=== PATIENT | male | born 1985 | race Caucasian/White ===

== ENCOUNTER 2016-08-25 20:30 | Emergency (ER) | payer BC, OTHER ==
[~2016-08-25] VITALS: Ht 177.8 cm; Wt 81.6 kg
[~2016-08-25 20:30] MED LIST: ALBU17AE3; CTRZ10T; MNTL10T
[2016-08-25 21:06] LABS: BASOPHILS # (AUTO) 0.1 10^3/uL (0.0-0.1); BASOPHILS % (AUTO) 1 % (0-10); EOSINOPHILS # (AUTO) 0.6 10^3/uL (0.0-0.3); EOSINOPHILS % (AUTO) 6 % (0-10); LYMPHOCYTES # (AUTO) 3.4 X 10^3 (1.0-4.0); LYMPHOCYTES % (AUTO) 34 % (12-44); MEAN CORPUSCULAR HEMOGLOBIN 28 PG (25-34); MEAN CORPUSCULAR HGB CONC 35 G/DL (32-36); MEAN CORPUSCULAR VOLUME 81 FL (80-99); MEAN PLATELET VOLUME 9.5 FL (7.4-10.4); MONOCYTES # (AUTO) 0.9 X 10^3 (0.0-1.0); MONOCYTES % (AUTO) 9 % (0-12); NEUTROPHILS # (AUTO) 5.1 X 10^3 (1.8-7.8); NEUTROPHILS % (AUTO) 51 % (42-75); PLATELET COUNT 287 10^3/uL (130-400); RED BLOOD COUNT 4.99 10^6/uL (4.35-5.85); RED CELL DISTRIBUTION WIDTH 12.8 % (10.0-14.5)
--- NOTE | 2016-08-25 21:07 | ED Chest Pain ---
General Chief Complaint: Chest Pain Stated Complaint: CHEST PAIN Nursing Triage Note: REPORTS 2 WEEKS OF CP, REPORTS INSPIRATIONAL PAIN IN LEFT SIDE CHEST. ALSO STATES IT FEELS LIKE A KNIFE JABBED IN LEFT SIDE OF NECK FREQUENTLY Nursing Sepsis Screen: No Definite Risk Source: patient Exam Limitations: no limitations History of Present Illness Time seen by provider: 21:05 Initial Comments Patient complains of constant, sharp, respirophasic left sided chest pain for at least one week. It became worse tonight as he was running. He states the pain radiates to his back and up to his left neck. He denies trauma. He smokes marijuana but no cigarettes. Allergies and Home Medications Allergies Coded Allergies: No Known Drug Allergies (Verified Allergy, Unknown, 02/21/08) Home Medications Albuterol 17 Gm Inh (Reported) Cetirizine Hcl 10 Mg Tablet (Reported) Montelukast Sodium 10 Mg Tablet (Reported) Review of Systems Constitutional: no symptoms reported Respiratory: See HPI Cardiovascular: Chest Pain Gastrointestinal: No Symptoms Reported All Other Systems Reviewed Negative Unless Noted: Yes Past Xqqhayk-Eakilr-Tzfnkq Hx Patient Social History Alcohol Use: Regular Use Recreational Drug Use: Yes (THC) Smoking Status: Current Someday Smoker 2nd Hand Smoke Exposure: Yes (THC) Recent Foreign Travel: No Contact w/Someone Who Travel: No Recent Infectious Disease Expo: No Recent Hopitalizations: No Seasonal Allergies Seasonal Allergies: Yes Surgeries HX Surgeries: Yes (gum skin grafting) Surgeries: Testicular Respiratory Hx Respiratory Disorders: Yes Respiratory Disorders: Asthma Cardiovascular Hx Cardiac Disorders: Yes (MURMUR CHILD) Neurological Hx Neurological Disorders: No Reproductive System Hx 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) Genitourinary Hx Genitourinary Disorders: No Gastrointestinal Hx Gastrointestinal Disorders: No Musculoskeletal Hx Musculoskeletal Disorders: No Endocrine Hx Endocrine Disorders: No HEENT HX ENT Disorders: No Cancer Hx Cancer: No Psychosocial Hx Psychiatric Problems: Yes Behavioral Health Disorders: Anxiety Integumentary HX Skin/Integumentary Disorder: No Blood Transfusions Hx Blood Disorders: No Reviewed Nursing Assessment Reviewed/Agree w Nursing PMH: Yes Physical Exam Vital Signs Vital Sign - Last 12Hours 08/25/16 20:37 Temp 99.7 Pulse 102 Resp 20 B/P 152/97 Pulse Ox 99 O2 Delivery Room Air Capillary Refill : Less Than 3 Seconds General Appearance: No Apparent Distress WD/WN HEENT: Pharynx Normal Neck: Supple Respiratory: Lungs Clear Normal Breath SoundsNo Pleural Rub Cardiovascular: Regular Rate, Rhythm No Edema Gastrointestinal: Soft Extremity: Normal Inspection Neurologic/Psychiatric: Alert No Motor/Sensory Deficits Skin: Normal Color Warm/Dry Progress/Results/Core Measures Results/Orders Lab Results Laboratory Tests Test 08/25/16 21:00 Range/Units Alanine Aminotransferase (ALT/SGPT) 56 H 0-55 U/L Albumin 4.5 3.2-4.5 G/DL Alkaline Phosphatase 90 40-136 U/L Anion Gap 13 5-14 MMOL/L Aspartate Amino Transf (AST/SGOT) 36 H 5-34 U/L BUN/Creatinine Ratio 10 Basophils # (Auto) 0.1 0.0-0.1 10^3/uL Basophils (%) (Auto) 1 0-10 % Blood Urea Nitrogen 10 7-18 MG/DL Calcium Level 9.3 8.5-10.1 MG/DL Carbon Dioxide Level 23 21-32 MMOL/L Chloride Level 103 98-107 MMOL/L Creatinine 1.05 0.60-1.30 MG/DL D-Dimer 1.02 H 0.00-0.49 UG/ML Eosinophils # (Auto) 0.6 H 0.0-0.3 10^3/uL Eosinophils (%) (Auto) 6 0-10 % Estimat Glomerular Filtration Rate > 60 Glucose Level 88 70-105 MG/DL Hematocrit 41 40-54 % Hemoglobin 14.1 13.3-17.7 G/DL Lipase 25 8-78 U/L Lymphocytes # (Auto) 3.4 1.0-4.0 X 10^3 Lymphocytes (%) (Auto) 34 12-44 % Magnesium Level 2.3 1.8-2.4 MG/DL Mean Corpuscular Hemoglobin 28 25-34 PG Mean Corpuscular Hemoglobin Concent 35 32-36 G/DL Mean Corpuscular Volume 81 80-99 FL Mean Platelet Volume 9.5 7.4-10.4 FL Monocytes # (Auto) 0.9 0.0-1.0 X 10^3 Monocytes (%) (Auto) 9 0-12 % Neutrophils # (Auto) 5.1 1.8-7.8 X 10^3 Neutrophils (%) (Auto) 51 42-75 % Platelet Count 287 130-400 10^3/uL Potassium Level 4.0 3.6-5.0 MMOL/L Red Blood Count 4.99 4.35-5.85 10^6/uL Red Cell Distribution Width 12.8 10.0-14.5 % Sodium Level 139 135-145 MMOL/L Total Bilirubin 0.8 0.1-1.0 MG/DL Total Protein 7.4 6.4-8.2 G/DL Troponin I < 0.30 <0.30 NG/ML White Blood Count 10.0 4.3-11.0 10^3/uL My Orders Orders-FRANDY HAND MD Cbc With Automated Diff (08/25/16 20:41) Magnesium (08/25/16 20:41) Chest 1 View, Ap/Pa Only (08/25/16 20:41) Ekg Tracing (08/25/16 20:41) Cardiac Profile 1 (08/25/16 20:41) Comprehensive Metabolic Panel (08/25/16 20:41) O2 (08/25/16 20:41) Monitor-Rhythm Ecg Trace Only (08/25/16 20:41) Saline Lock/Iv-Start (08/25/16 20:41) Lipase (08/25/16 20:41) Ketorolac Injection (Toradol Injection) (08/25/16 21:15) Fibrin Degradation Products (08/25/16 21:02) Ct Angio Chest W (08/25/16 21:51) Iohexol Injection (Omnipaque 350 Mg/Ml 1 (08/25/16 22:15) Ns (Ivpb) (Sodium Chloride 0.9% Ivpb Bag (08/25/16 22:15) Prednisone Tablet (Deltasone Tablet) (08/25/16 23:13) Medications Given in ED Current Medications Medications Dose Ordered Sig/Edd Route Start Time Stop Time Status Last Admin Dose Admin Iohexol 150 ml ONCE ONCE IV 08/25/16 22:15 08/25/16 22:16 DC 08/25/16 22:16 125 ML Ketorolac Tromethamine 30 mg ONCE ONCE IVP 08/25/16 21:15 08/25/16 21:16 DC 08/25/16 21:04 30 MG Sodium Chloride 100 ml ONCE ONCE IV 08/25/16 22:15 08/25/16 22:16 DC 2/22/17 22:16 80 ML Vital Signs/I&O Vital Sign - Last 12Hours 08/25/16 08/25/16 08/25/16 20:37 20:37 21:04 Temp 99.7 99.7 Pulse 102 Resp 20 B/P 152/97 Pulse Ox 99 O2 Delivery Room Air Room Air Blood Pressure Mean: 115 Progress Note : Progress Note CT scan of the chest was ordered due to elevated d-dimer and left-sided pleuritic chest pain ECG Initial ECG Rhythm: Normal Sinus Initial ECG Intervals: Normal Initial ECG Impression: Nonspecific Changes Diagnostic Imaging Comments Date of Exam:08/25/16 CHEST 1 VIEW, AP/PA ONLY INDICATION: Chest pain COMPARISON: None FINDINGS: Single frontal view of the chest demonstrates normal heart size and pulmonary vascularity. The lungs are well aerated and clear. No large pleural effusion or pneumothorax is seen. The visualized osseous structures show no acute abnormalities. IMPRESSION: 1. No acute cardiopulmonary process. CT chest was negative for PE Departure Impression Impression: Primary Impression: Chest pain Additional Impression: Pleurisy Disposition: 01 HOME, SELF-CARE Condition: Stable Departure-Patient Inst. Decision time for Depature: 22:50 Referrals: YOGESH DONALDSON MD (PCP) Primary Care Physician Patient Instructions: Chest Pain That Is Not Caused by the Heart (DC) FRANDY HAND MD Aug 25, 2016 21:07
[2016-08-25] MEDS ORDERED: KETOROLAC 30 MG/ML VIAL IVP ONE (21:15)
--- NOTE | 2016-08-25 21:15 | Diagnostic Imaging Report ---
INDICATION: Chest pain COMPARISON: None FINDINGS: Single frontal view of the chest demonstrates normal heart size and pulmonary vascularity. The lungs are well aerated and clear. No large pleural effusion or pneumothorax is seen. The visualized osseous structures show no acute abnormalities. IMPRESSION: 1. No acute cardiopulmonary process. Dictated by: Dictated on workstation # [id number]
[2016-08-25 21:24] LABS: ALANINE AMINOTRANSFERASE 56 U/L (0-55); ALBUMIN 4.5 G/DL (3.2-4.5); ANION GAP 13 MMOL/L (5-14); ASPARTATE AMINO TRANSFERASE 36 U/L (5-34); BILIRUBIN,TOTAL 0.8 MG/DL (0.1-1.0); BLOOD UREA NITROGEN 10 MG/DL (7-18); BUN/CREATININE RATIO 10; CALCIUM 9.3 MG/DL (8.5-10.1); CARBON DIOXIDE 23 MMOL/L (21-32); CHLORIDE 103 MMOL/L (98-107); CREATININE SERUM 1.05 MG/DL (0.60-1.30); GFR ESTIMATED > 60; GLUCOSE 88 MG/DL (70-105); LIPASE 25 U/L (8-78); MAGNESIUM 2.3 MG/DL (1.8-2.4); SODIUM 139 MMOL/L (135-145); TOTAL PROTEIN 7.4 G/DL (6.4-8.2)
[2016-08-25] MEDS ORDERED: IOHEXOL 350 MG/ML 150 ML (OMNIPAQUE 350) VIAL IV ONE (22:15)
[2016-08-25] MEDS ORDERED: NS 100 ML (IVPB) BAG IV ONE (22:15)
[2016-08-25] MEDS ORDERED: predniSONE 20 MG TAB ONE (23:13)
[2016-08-25 23:19] VITALS: BP 122/76
--- NOTE | 2016-08-26 06:33 | Diagnostic Imaging Report ---
PROCEDURE: CT angiography of the chest with contrast. TECHNIQUE: Multiple contiguous axial images were obtained through the chest after uneventful bolus administration of intravenous contrast. Reconstructed CTA MIP acquisitions were also performed. INDICATION: Chest pain. COMPARISON: CTA chest 02/22/2008. FINDINGS: The thoracic aorta and its major branches in the chest and upper abdomen demonstrate no high-grade stenosis, aneurysm or dissection. No pulmonary emboli. Bilateral hilar lymphadenopathy measuring up to 1.6 cm in short axis dimension on the left, 1.5 cm on the right. Subcarinal lymphadenopathy measuring up to 1.3 cm short axis dimension. No pleural or pericardial effusion. Numerous scattered soft tissue nodules in both lungs measuring up to 1.2 cm on the right, 0.8 cm on the left. The visualized upper abdominal contents, including the adrenal glands, are unremarkable. Minimal spondylotic changes in the visualized spine. IMPRESSION: 1. No pulmonary emboli. The thoracic aorta and its major branches in the chest and upper abdomen are unremarkable. 2. Numerous pulmonary nodules, measuring up to 1.2 cm, throughout both lungs. There is bilateral hilar and mediastinal lymphadenopathy. Findings may represent a infectious or neoplastic process such as metastases or lymphoma. Dictated by: Dictated on workstation # [id number]
== END 2016-08-25 23:19 | disposition home or self-care (01) ==
LOC: EDUNIT# 20:30 → ER 20:32
DX: R09.1 Pleurisy (principal); R91.8 Other nonspecific abnormal finding of lung field; F17.210 Nicotine dependence, cigarettes, uncomplicated
CPT/HCPCS: 36415; 71010; 71275; 80053; 83690; 83735; 84484; 85025; 85379; 93005; 93041; 96374